=== PATIENT | male | born 1975 | race Caucasian/White ===

== ENCOUNTER 2017-03-16 18:15 | Emergency (ER) | payer MEDICARE ==
--- NOTE | ~2017-03-16 | ER ---
PATIENT'S NAME: KARLEY CHRISTIE [facility] AGE: 41 Y [address] ROOM: [place], [place] [address] LOCATION: [facility] ADMIT DATE: 03/16/2017 ER/Outpatient Report DISCHARGE DATE: 03/16/2017 FAMILY PHYSICIAN: PHYSICIAN, ANGELA ATTENDING PHYSICIAN: Anthony Mccord HISTORY OF PRESENT ILLNESS: This is a 41-year-old male who presents with chief complaint of chest pain x1 week. He says that in general he has not been feeling well. He has had some shortness of breath and diaphoresis. It is not with any exertion, but it is on the left side of his chest. It is worse with palpation. He denies any nausea, vomiting, or weakness. Just says he feels in general "awful." He reports his pain is 8/10 and sort of a stabbing pain. Says he has not had anything like this before. The patient also says he believes he is withdrawing from opioids as he was previously on 100 mcg of fentanyl patch plus Dilaudid for his chronic back pain, but he has been off that for about 2 weeks he says so he is not sure if this chest pain is in relation to his sort of withdrawal symptoms or it is something new. No other complaints at this time. PAST MEDICAL HISTORY: None. PAST SURGICAL HISTORY: Multiple ortho surgeries in the right shoulder and back surgery. SOCIAL HISTORY: Ex-smoker, but he quit 3 months ago. Denies any drugs or alcohol use. MEDICATIONS: Please see med list. ALLERGIES: NONE. REVIEW OF SYSTEMS: Reviewed by me and negative with the exception of those discussed in the HPI. PHYSICAL EXAMINATION: VITAL SIGNS: The patient is 5 feet 10 inches. He is 81.8 kg. Blood pressure is 148/89; heart rate is 85; respiratory rate is 20; and temperature is 98.6, tympanic. He is saturating 99% on room air. GCS is 15. GENERAL: The patient looks mildly uncomfortable. He is holding the left side of his chest, sort of pushing it down in one spot, says that makes it feel a little bit better. He is speaking to me in full sentences. He is not pale or PATIENT'S NAME: KARLEY CHRISTIE [facility] AGE: 41 Y [address] ROOM: [place], [place] [address] LOCATION: [facility] ADMIT DATE: 03/16/2017 ER/Outpatient Report DISCHARGE DATE: 03/16/2017 FAMILY PHYSICIAN: PHYSICIAN, NO ATTENDING PHYSICIAN: Anthony Mccord A diaphoretic. He looks well otherwise. Not actively vomiting or retching. He is alert and oriented x4. GCS 15. HEART: Rate is regular rate and rhythm. He is not tachy. I do not hear a murmur. CHEST: He has normal breath sounds. He has some mild chest wall tenderness at one point. His lung sounds are otherwise clear. He has no labored breathing, tachypnea, or accessory muscle use. He has strong radial pulses. ABDOMEN: Soft, nontender, nondistended. He has no guarding or rebound. No epigastric tenderness. No right lower quadrant tenderness or left lower quadrant tenderness. EXTREMITIES: Warm and dry. He has no rash. He has no lower extremity edema. LABORATORY DATA AND X-RAYS: An EKG was done, which just shows sinus rhythm without any ectopy, ST elevation or ST depression. We also checked some basic lab work as this has been over a week now that he has had this. CBC shows a white count of 10.6, H and H of 15.2/42.5, platelets are 239. No bandemia. PTT is 26, PT is 11, INR is 1.05. CMS shows sodium 142, potassium 3.8, chloride 108, CO2 of 26, anion gap 11.8, BUN 16, creatinine is 1.4, alkaline phosphatase 75, AST 19, ALT 22, GFR is 55, magnesium is 2.2, CPK is 458, CK-MB is 2.2. Troponin I is less than 0.04. Chest x-ray on my read is within normal limits, no acute cardiopulmonary process. EMERGENCY DEPARTMENT COURSE: Discussed this with the patient. He seems very angry that I am not going to give him any narcotics, especially since he says he cannot see his pain specialist until March 30, which is 2 weeks away. I did give him aspirin here. His workup is otherwise pretty negative. I think there is a more benign reason for his chest pain. We will refer him to primary care doctor where he can have appropriate management and followup. I did write him a script for some [place] for his chronic back pain as well as chest pain. He is really angry that we did not give him a [place] here, and we did not because he is driving and we are not going to do that. I explained this to the patient. He was really upset, but left with a script. I asked that he follow up with his primary care doctor, referral given. IMPRESSION: Chest pain, atypical, chronic opioid use. Discharged home in stable condition. ANTHONY MCCORD MD PATIENT'S NAME: KARLEY CHRISTIE [facility] AGE: 41 Y [address] ROOM: [place] [address] LOCATION: [facility] ADMIT DATE: 03/16/2017 ER/Outpatient Report DISCHARGE DATE: 03/16/2017 FAMILY PHYSICIAN: PHYSICIAN, NO ATTENDING PHYSICIAN: Anthony Mccord/[email or web address] /[id number] d: 03/17/17 05 t: 03/17/17 1841, OUTPATIENT REPORT
[2017-03-16 18:47] LABS: BASOPHIL % 0.4 %; EOSINOPHIL # 0.2 K/uL (0.0-0.5); EOSINOPHIL % 1.8 %; HEMATOCRIT 42.5 % (37.0-53.0); HEMOGLOBIN 15.2 g/dL (12.0-17.0); IMMATURE GRANULOCYTE % 0.2 %; LYMPHOCYTE # 2.4 K/uL (0.8-4.0); LYMPHOCYTE % 22.3 %; MCHC 35.8 gm/dL (32.0-36.5); MONOCYTE # 0.7 K/uL (0.0-1.0); MONOCYTE % 6.8 %; MPV 9.8 fl (9.4-12.4); NEUTROPHIL # (ANC) 7.2 K/uL (1.4-9.0); NEUTROPHIL % 68.5 %; NRBC % 0 /100WBC (0-0.00); PLATELET COUNT 239 K/uL (150-450); RBC 5.06 M/uL (4.00-6.00); RDW-CV 12.6 % (11.9-14.6); WBC 10.6 K/uL (4.0-11.0)
[2017-03-16 18:54] LABS: INR - (THERAPEUTIC) 1.05 (0.92-1.07); PTT 26 SECONDS (25-32)
[2017-03-16 19:06] LABS: ALBUMIN 4.4 gm/dL (3.5-5.0); ALK PHOS 75 IU/L (33-138); ALT 22 IU/L (12-78); ANION GAP 11.8 (10.0-19.0); AST 19 IU/L (10-40); BLOOD UREA NITROGEN 16 mg/dL (6-24); CALCIUM 8.7 mg/dL (8.5-10.5); CHLORIDE 108 mMol/L (96-110); CO2 26 mMol/L (22-32); CPK 458 IU/L (35-332); CREATININE 1.4 mg/dL (0.6-1.3); ESTIMATED GFR (MDRD EQUATION) 55; MAGNESIUM 2.2 mg/dL (1.8-2.6); POTASSIUM 3.8 mMol/L (3.7-5.1); SODIUM 142 mMol/L (135-145); TOTAL BILIRUBIN 0.6 mg/dL (0.0-1.5); TOTAL PROTEIN 7.7 g/dL (6.0-8.4)
== END 2017-03-16 19:32 | disposition disaster alternative care site (69) ==
LOC: GMED 18:15
PROVIDERS: Emergency Medicine
DX: R07.89 Other chest pain (principal); F11.90 Opioid use, unspecified, uncomplicated; Z87.891 Personal history of nicotine dependence; Z98.890 Other specified postprocedural states

== ENCOUNTER → 2017-04-06 | Outpatient (CLI) | payer MEDICARE ==
--- NOTE | ~2017-04-06 | NDGEN ---
PATIENT'S NAME: KARLEY CHRISTIE [facility] AGE: 41 Y [address] ROOM: [place] [address] LOCATION: [facility] ADMIT DATE: 04/06/2017 Neurodiagnostics DISCHARGE DATE: FAMILY PHYSICIAN: PHYSICIAN, NO ATTENDING PHYSICIAN: MARK CLEMONS PROCEDURE: ELECTROENCEPHALOGRAM DATE OF PROCEDURE: 04/06/2017 TEST: TECH: CLINICAL DIAGNOSIS: DURATION OF EE minutes. REASON FOR EEG: Concussion/seizures. 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 He is undergoing radiation. EEG FINDINGS: The patient was awake for majority of the EEG. During the awake portions of EEG, a low voltage of 10 to 11 Hz was seen in the posterior head regions with maximum voltage of less than 50 mV. There was one sharp transient noted in the bifrontal regions; however, it was unclear if this was secondary to an artifact versus sharp wave. No other definitive epileptiform discharges were seen. Activation procedures included photic stimulation between 3 to 30 Hz which did not show any abnormalities. CLASSIFICATION: Normal, awake, drowsy, 10/20 scalp electrodes. IMPRESSION: This EEG is mostly within normal limits. One episode of sharp transient was seen in the bifrontal regions; however, no definitive sharp waves were appreciated during this recording. No EEG seizures were seen during this recording. Please correlate clinically. MD MOHAN AMARAL/modl PATIENT'S NAME: KARLEY CHRISTIE [facility] AGE: 41 Y [address] ROOM: [place] [address] LOCATION: [facility] ADMIT DATE: 04/06/2017 Neurodiagnostics DISCHARGE DATE: FAMILY PHYSICIAN: PHYSICIAN, NO ATTENDING PHYSICIAN: MARK CLEMONS /[id number] dtt: 04/11/17 0425 , KAR WOOD dtd: 04/10/17 1525
== END | disposition disaster alternative care site (69) ==
LOC: GRAD 07:43
DX: R56.9 Unspecified convulsions (principal); Z87.820 Personal history of traumatic brain injury

== ENCOUNTER → 2017-04-07 | Outpatient (CLI) | payer MEDICARE | END | disposition disaster alternative care site (69) | LOC: GRAD 13:22 | DX: M54.9 Dorsalgia, unspecified (principal); M41.9 Scoliosis, unspecified; Z98.890 Other specified postprocedural states ==